=== PATIENT | female | born 1980 | race American Indian/Alaskan Native ===

== ENCOUNTER 2019-01-31 06:38 | Emergency (ER) | payer MEDICAID, SELFPAY ==
[2019-01-31 07:30] LABS: Basophils % (Auto) 0.4 % (0.0-1.8); Eosinophils % (Auto) 0.6 % (0.0-4.3); Hematocrit 35.6 % (30.3-42.9); Hemoglobin 11.8 gm/dl (10.1-14.3); Lymphocytes # (Auto) 1.6 K/mm3 (1.2-5.4); Mean Corpuscular HGB Conc 33 % (30-34); Mean Corpuscular Volume 75 fl (79-97); Monocytes # (Auto) 0.6 K/mm3 (0.0-0.8); Monocytes % (Auto) 7.7 % (0.0-7.3); Platelet Count 219 K/mm3 (140-440); Red Blood Count 4.77 M/mm3 (3.65-5.03)
[2019-01-31 07:42] LABS: BUN/Creatinine Ratio 11; Blood Urea Nitrogen 8 mg/dL (7-17); Calcium 8.8 mg/dL (8.4-10.2); Hemolysis Index 4
--- NOTE | 2019-01-31 08:28 | Emergency Department Report ---
ED General Adult HPI - General Chief complaint: Psych Stated complaint: MH EVAL/HEARING VOICES Time Seen by Provider: 01/31/19 08:01 Source: patient, EMS Mode of arrival: Ambulatory Limitations: No Limitations - History of Present Illness Initial comments: Patient presents to emergency prompt a chief complaint of auditory hallucinations. Patient states the voices told her to jump off a bridge. Patient denies previous history of auditory hallucinations. Patient does endorse having a history of bipolar but is currently not on any medications for bipolar. Patient also denies any recent prescription medication or [id number] medication use -: Gradual Severity scale (0 -10): 0 Consistency: constant Improves with: none Worsens with: none Associated Symptoms: denies other symptoms Treatments Prior to Arrival: NSAID - Related Data Home Medications Medication Instructions Recorded Confirmed Last Taken Unobtainable 01/31/19 01/31/19 Unknown Allergies Allergy/AdvReac Type Severity Reaction Status Date / Time haloperidol [From Haldol] Allergy Swelling Verified 01/31/19 07:10 ED Review of Systems ROS: Stated complaint: MH EVAL/HEARING VOICES Other details as noted in HPI Comment: All other systems reviewed and negative Constitutional: denies: chills, fever Eyes: denies: eye pain, eye discharge, vision change ENT: denies: ear pain, throat pain Respiratory: denies: cough, shortness of breath, wheezing Cardiovascular: denies: chest pain, palpitations Endocrine: no symptoms reported Gastrointestinal: denies: abdominal pain, nausea, diarrhea Genitourinary: denies: urgency, dysuria, discharge Musculoskeletal: denies: back pain, joint swelling, arthralgia Skin: denies: rash, lesions Neurological: denies: headache, weakness, paresthesias Psychiatric: auditory hallucinations, suicidal thoughts. denies: anxiety, depression Hematological/Lymphatic: denies: easy bleeding, easy bruising ED Past Medical Hx - Past Medical History Previous Medical History?: Yes Hx Psychiatric Treatment: Yes (depression, bipolar) Hx Asthma: Yes - Surgical History Past Surgical History?: No - Social History Smoking Status: Current Every Day Smoker - Medications Home Medications: Home Medications Medication Instructions Recorded Confirmed Last Taken Type Unobtainable 01/31/19 01/31/19 Unknown History ED Physical Exam - General Limitations: No Limitations General appearance: alert, in no apparent distress - Head Head exam: Present: atraumatic, normocephalic - Eye Eye exam: Present: normal appearance, PERRL, EOMI - ENT ENT exam: Present: mucous membranes moist - Neck Neck exam: Present: normal inspection - Respiratory Respiratory exam: Present: normal lung sounds bilaterally. Absent: respiratory distress - Cardiovascular Cardiovascular Exam: Present: regular rate, normal rhythm. Absent: systolic murmur, diastolic murmur, rubs, gallop - GI/Abdominal GI/Abdominal exam: Present: soft, normal bowel sounds. Absent: distended, tenderness - Extremities Exam Extremities exam: Present: normal inspection - Back Exam Back exam: Present: normal inspection - Neurological Exam Neurological exam: Present: alert, oriented X3, CN II-XII intact. Absent: motor sensory deficit - Psychiatric Psychiatric exam: Present: normal affect, normal mood, suicidal ideation - Skin Skin exam: Present: warm, dry, intact, normal color. Absent: rash ED Course Vital Signs 01/31/19 01/31/19 06:59 13:11 Temperature 98.7 F 98.9 F Pulse Rate 73 62 Respiratory 20 Rate Blood Pressure 115/83 Blood Pressure 123/81 [Right] O2 Sat by Pulse 99 Oximetry ED Medical Decision Making - Lab Data Result diagrams: 01/31/19 07:15 01/31/19 07:15 Lab Results 01/31/19 01/31/19 01/31/19 Range/Units 07:10 07:10 07:15 WBC (4.5-11.0) K/mm3 RBC (3.65-5.03) M/mm3 Hgb (10.1-14.3) gm/dl Hct (30.3-42.9) % MCV (79-97) fl MCH (28-32) pg MCHC (30-34) % RDW (13.2-15.2) % Plt Count (140-440) K/mm3 Lymph % (Auto) (13.4-35.0) % [place] % (Auto) (0.0-7.3) % Eos % (Auto) (0.0-4.3) % Baso % (Auto) (0.0-1.8) % Lymph # (1.2-5.4) K/mm3 [place] # (0.0-0.8) K/mm3 Eos # (0.0-0.4) K/mm3 Baso # (0.0-0.1) K/mm3 Seg Neutrophils % (40.0-70.0) % Seg Neutrophils # (1.8-7.7) K/mm3 Sodium (137-145) mmol/L Potassium (3.6-5.0) mmol/L Chloride (98-107) mmol/L Carbon Dioxide (22-30) mmol/L Anion Gap mmol/L BUN (7-17) mg/dL Creatinine (0.7-1.2) mg/dL Estimated GFR ml/min BUN/Creatinine Ratio % Glucose (65-100) mg/dL Calcium (8.4-10.2) mg/dL HCG, Qual (Negative) Urine Color Yellow (Yellow) Urine Turbidity Cloudy (Clear) Urine pH 8.0 H (5.0-7.0) Ur Specific [place] 1.025 (1.003-1.030) Urine Protein <15 mg/dl (Negative) mg/dL Urine Glucose (UA) Neg (Negative) mg/dL Urine Ketones Neg (Negative) mg/dL Urine Blood Neg (Negative) Urine Nitrite Neg (Negative) Urine Bilirubin Neg (Negative) Urine Urobilinogen < 2.0 (<2.0) mg/dL Ur Leukocyte Esterase Neg (Negative) Urine WBC (Auto) 1.0 (0.0-6.0) /HPF Urine RBC (Auto) 1.0 (0.0-6.0) /HPF U Epithel Cells (Auto) 11.0 (0-13.0) /HPF Urine Bacteria (Auto) 1+ (Negative) /HPF Urine Mucus 1+ /HPF Salicylates < 0.3 L (2.8-20.0) mg/dL Urine Opiates Screen Presumptive negative Urine Methadone Screen Presumptive negative Acetaminophen (10.0-30.0) ug/mL Ur Barbiturates Screen Presumptive negative Ur Phencyclidine Scrn Presumptive negative Ur Amphetamines Screen Presumptive negative U Benzodiazepines Scrn Presumptive negative Urine Cocaine Screen Presumptive negative U Marijuana (THC) Screen Presumptive negative Drugs of Abuse Note Disclamer Plasma/Serum Alcohol (0-0.07) % 01/31/19 01/31/19 01/31/19 Range/Units 07:15 07:15 07:15 WBC (4.5-11.0) K/mm3 RBC (3.65-5.03) M/mm3 Hgb (10.1-14.3) gm/dl Hct (30.3-42.9) % MCV (79-97) fl MCH (28-32) pg MCHC (30-34) % RDW (13.2-15.2) % Plt Count (140-440) K/mm3 Lymph % (Auto) (13.4-35.0) % [place] % (Auto) (0.0-7.3) % Eos % (Auto) (0.0-4.3) % Baso % (Auto) (0.0-1.8) % Lymph # (1.2-5.4) K/mm3 [place] # (0.0-0.8) K/mm3 Eos # (0.0-0.4) K/mm3 Baso # (0.0-0.1) K/mm3 Seg Neutrophils % (40.0-70.0) % Seg Neutrophils # (1.8-7.7) K/mm3 Sodium 138 (137-145) mmol/L Potassium 4.3 (3.6-5.0) mmol/L Chloride 102.5 (98-107) mmol/L Carbon Dioxide 25 (22-30) mmol/L Anion Gap 15 mmol/L BUN 8 (7-17) mg/dL Creatinine 0.7 (0.7-1.2) mg/dL Estimated GFR > 60 ml/min BUN/Creatinine Ratio 11 % Glucose 126 H (65-100) mg/dL Calcium 8.8 (8.4-10.2) mg/dL HCG, Qual (Negative) Urine Color (Yellow) Urine Turbidity (Clear) Urine pH (5.0-7.0) Ur Specific [place] (1.003-1.030) Urine Protein (Negative) mg/dL Urine Glucose (UA) (Negative) mg/dL Urine Ketones (Negative) mg/dL Urine Blood (Negative) Urine Nitrite (Negative) Urine Bilirubin (Negative) Urine Urobilinogen (<2.0) mg/dL Ur Leukocyte Esterase (Negative) Urine WBC (Auto) (0.0-6.0) /HPF Urine RBC (Auto) (0.0-6.0) /HPF U Epithel Cells (Auto) (0-13.0) /HPF Urine Bacteria (Auto) (Negative) /HPF Urine Mucus /HPF Salicylates (2.8-20.0) mg/dL Urine Opiates Screen Urine Methadone Screen Acetaminophen < 5.0 L (10.0-30.0) ug/mL Ur Barbiturates Screen Ur Phencyclidine Scrn Ur Amphetamines Screen U Benzodiazepines Scrn Urine Cocaine Screen U Marijuana (THC) Screen Drugs of Abuse Note Plasma/Serum Alcohol < 0.01 (0-0.07) % 01/31/19 01/31/19 Range/Units 07:15 07:15 WBC 7.5 (4.5-11.0) K/mm3 RBC 4.77 (3.65-5.03) M/mm3 Hgb 11.8 (10.1-14.3) gm/dl Hct 35.6 (30.3-42.9) % MCV 75 L (79-97) fl MCH 25 L (28-32) pg MCHC 33 (30-34) % RDW 17.0 H (13.2-15.2) % Plt Count 219 (140-440) K/mm3 Lymph % (Auto) 22.0 (13.4-35.0) % [place] % (Auto) 7.7 H (0.0-7.3) % Eos % (Auto) 0.6 (0.0-4.3) % Baso % (Auto) 0.4 (0.0-1.8) % Lymph # 1.6 (1.2-5.4) K/mm3 [place] # 0.6 (0.0-0.8) K/mm3 Eos # 0.0 (0.0-0.4) K/mm3 Baso # 0.0 (0.0-0.1) K/mm3 Seg Neutrophils % 69.3 (40.0-70.0) % Seg Neutrophils # 5.2 (1.8-7.7) K/mm3 Sodium (137-145) mmol/L Potassium (3.6-5.0) mmol/L Chloride (98-107) mmol/L Carbon Dioxide (22-30) mmol/L Anion Gap mmol/L BUN (7-17) mg/dL Creatinine (0.7-1.2) mg/dL Estimated GFR ml/min BUN/Creatinine Ratio % Glucose (65-100) mg/dL Calcium (8.4-10.2) mg/dL HCG, Qual Negative (Negative) Urine Color (Yellow) Urine Turbidity (Clear) Urine pH (5.0-7.0) Ur Specific [place] (1.003-1.030) Urine Protein (Negative) mg/dL Urine Glucose (UA) (Negative) mg/dL Urine Ketones (Negative) mg/dL Urine Blood (Negative) Urine Nitrite (Negative) Urine Bilirubin (Negative) Urine Urobilinogen (<2.0) mg/dL Ur Leukocyte Esterase (Negative) Urine WBC (Auto) (0.0-6.0) /HPF Urine RBC (Auto) (0.0-6.0) /HPF U Epithel Cells (Auto) (0-13.0) /HPF Urine Bacteria (Auto) (Negative) /HPF Urine Mucus /HPF Salicylates (2.8-20.0) mg/dL Urine Opiates Screen Urine Methadone Screen Acetaminophen (10.0-30.0) ug/mL Ur Barbiturates Screen Ur Phencyclidine Scrn Ur Amphetamines Screen U Benzodiazepines Scrn Urine Cocaine Screen U Marijuana (THC) Screen Drugs of Abuse Note Plasma/Serum Alcohol (0-0.07) % - Medical Decision Making Awaiting psychiatric placement Critical care attestation.: If time is entered above; I have spent that time in minutes in the direct care of this critically ill patient, excluding procedure time. ED Disposition Clinical Impression: Suicidal ideations Disposition: DC/TX-65 PSY HOSP/PSY UNIT Is pt being admited?: No Does the pt Need Aspirin: No Condition: Stable Referrals: STONE HERNANDEZ MD [Primary Care Provider] - 3-5 Days
[2019-01-31 08:54] LABS: Amphetamine Screen,Urine PRESUMPTIVE NEGATIVE; Benzodiazepines Screen,Urine PRESUMPTIVE NEGATIVE; Bilirubin,Urine NEG (Negative); Blood,Urine NEG (Negative); Cannabinoid Screen,Urine PRESUMPTIVE NEGATIVE; Cocaine Screen,Urine PRESUMPTIVE NEGATIVE; Color,Urine Yellow (Yellow); Methadone Screen,Urine PRESUMPTIVE NEGATIVE; Mucus,Urine 1+ /HPF; Opiate Screen,Urine PRESUMPTIVE NEGATIVE; Protein,Urine <15 mg/dL mg/dL (Negative); Urobilinogen,Urine < 2.0 mg/dL (<2.0)
[2019-01-31 09:27] LABS: Bacteria,Urine 1+ /HPF (Negative)
[2019-01-31 13:16] VITALS: BP 123/81
== END 2019-01-31 15:36 ==
LOC: EEVIPCON 06:38 → ED 06:38
DX: F31.9 Bipolar disorder, unspecified (principal); R45.851 Suicidal ideations; R44.0 Auditory hallucinations; J45.909 Unspecified asthma, uncomplicated; F17.200 Nicotine dependence, unspecified, uncomplicated
CPT/HCPCS: 36415; 80048; 80307; 81001; 84703; 85025; 99285; G0480; 80320

== ENCOUNTER 2019-02-13 05:40 | Emergency (ER) | payer MEDICAID, SELFPAY ==
--- NOTE | 2019-02-13 06:25 | XRay Report ---
PROCEDURE: XR CHEST 1V AP TECHNIQUE: A single view of the chest was obtained. HISTORY: Chest Pain COMPARISONS: None available FINDINGS: The lungs are clear. The heart size is normal. The lungs are not congested. Pleural fluid is not seen . The bones and soft tissues are well-maintained. IMPRESSION: Within normal limits.. This document is electronically signed by Dev Briscoe MD., February 13 2019 06:23:29 AM ET
[2019-02-13 06:33] LABS: Basophils % (Auto) 0.6 % (0.0-1.8); Eosinophils # (Auto) 0.1 K/mm3 (0.0-0.4); Eosinophils % (Auto) 1.1 % (0.0-4.3); Hematocrit 34.9 % (30.3-42.9); Hemoglobin 11.6 gm/dl (10.1-14.3); Lymphocytes % (Auto) 28.5 % (13.4-35.0); Mean Corpuscular HGB Conc 33 % (30-34); Mean Corpuscular Volume 75 fl (79-97); Monocytes # (Auto) 0.5 K/mm3 (0.0-0.8); Monocytes % (Auto) 7.9 % (0.0-7.3); Platelet Count 270 K/mm3 (140-440); Red Blood Count 4.62 M/mm3 (3.65-5.03)
[2019-02-13 06:49] LABS: Bilirubin,Urine NEG (Negative); Blood,Urine LG (Negative); Color,Urine Red (Yellow); Mucus,Urine FEW /HPF; Urobilinogen,Urine < 2.0 mg/dL (<2.0)
[2019-02-13 06:50] LABS: RBC,Urine > 182.0 /HPF (0.0-6.0)
[2019-02-13 07:05] LABS: BUN/Creatinine Ratio 12; Blood Urea Nitrogen 11 mg/dL (7-17); Calcium 8.9 mg/dL (8.4-10.2); Hemolysis Index 0
--- NOTE | 2019-02-13 08:29 | Emergency Department Report ---
ED Abdominal Pain HPI - General Chief Complaint: Chest Pain Stated Complaint: CHEST ABD PAIN NAUSEA VAG PAIN Time Seen by Provider: 02/13/19 08:02 Source: patient Mode of arrival: Ambulatory Limitations: No Limitations - History of Present Illness Initial Comments: Patient comes to the emergency room this morning complaining of abdominal pain, chest pain and vaginal pain. She was screened using protocol early this morning. Patient was placed in a room and underwent a workup. All of her findings were noted and normal. Patient was constricted on initial exam not very forthcoming and just complaining of psychosomatic complaints. However, on discharge patient started crying and stating that something is wrong with her "'head" -: Sudden Location: diffuse Severity scale (0 -10): 7 Consistency: constant Improves With: nothing Worsens With: nothing Associated Symptoms: nausea, vomiting, other (no n/v in ER) - Related Data Home Medications Medication Instructions Recorded Confirmed Last Taken Unobtainable 01/31/19 01/31/19 Unknown Allergies Allergy/AdvReac Type Severity Reaction Status Date / Time haloperidol [From Haldol] Allergy Swelling Verified 01/31/19 07:10 ED Review of Systems ROS: Stated complaint: CHEST ABD PAIN NAUSEA VAG PAIN Other details as noted in HPI Comment: All other systems reviewed and negative ENT: denies: ear pain Respiratory: denies: cough Cardiovascular: denies: palpitations Gastrointestinal: as per HPI, abdominal pain, nausea, vomiting Genitourinary: as per HPI Musculoskeletal: denies: back pain Skin: denies: rash Neurological: as per HPI. denies: headache Psychiatric: denies: anxiety Hematological/Lymphatic: denies: easy bleeding ED Past Medical Hx - Past Medical History Hx Psychiatric Treatment: Yes (depression, bipolar) Hx Asthma: Yes Additional medical history: Epilepsy - Surgical History Past Surgical History?: Yes Additional Surgical History: C/SX2, left ankle S/P - Family History Family history: no significant - Social History Smoking Status: Former Smoker Substance Use Type: None - Medications Home Medications: Home Medications Medication Instructions Recorded Confirmed Last Taken Type Unobtainable 01/31/19 01/31/19 Unknown History ED Physical Exam - General Limitations: No Limitations General appearance: alert - Head Head exam: Present: atraumatic - Eye Eye exam: Present: normal appearance - ENT ENT exam: Present: mucous membranes moist - Neck Neck exam: Present: normal inspection - Respiratory Respiratory exam: Present: normal lung sounds bilaterally - Cardiovascular Cardiovascular Exam: Present: regular rate - GI/Abdominal GI/Abdominal exam: Present: soft, normal bowel sounds - Extremities Exam Extremities exam: Present: normal inspection - Back Exam Back exam: Present: normal inspection, full ROM - Neurological Exam Neurological exam: Present: alert, oriented X3 - Psychiatric Psychiatric exam: Present: normal affect, normal mood - Skin Skin exam: Present: warm, dry ED Course Vital Signs 02/13/19 02/13/19 05:51 05:57 Temperature 98.0 F 98 F Pulse Rate 66 68 Respiratory 18 18 Rate Blood Pressure 112/78 112/78 O2 Sat by Pulse 96 96 Oximetry ED Medical Decision Making - Lab Data Result diagrams: 02/13/19 06:17 02/13/19 06:17 - EKG Data EKG shows normal: sinus rhythm Rate: normal - EKG Data When compared to previous EKG there are: no significant change Interpretation: no acute changes - Radiology Data Radiology results: report reviewed, image reviewed - Medical Decision Making Labs 02/13/19 02/13/19 02/13/19 06:17 06:17 06:21 WBC 6.9 RBC 4.62 Hgb 11.6 Hct 34.9 MCV 75 L MCH 25 L MCHC 33 RDW 17.0 H Plt Count 270 Lymph % (Auto) 28.5 [place] % (Auto) 7.9 H Eos % (Auto) 1.1 Baso % (Auto) 0.6 Lymph # 2.0 [place] # 0.5 Eos # 0.1 Baso # 0.0 Seg Neutrophils % 61.9 Seg Neutrophils # 4.3 Sodium 145 Potassium 4.6 Chloride 104.9 Carbon Dioxide 27 Anion Gap 18 BUN 11 Creatinine 0.9 Estimated GFR > 60 BUN/Creatinine Ratio 12 Glucose 121 H Calcium 8.9 Troponin T < 0.010 HCG, Qual Urine Color Red Urine Turbidity Cloudy Urine pH 6.0 Ur Specific [place] 1.032 H Urine Protein 100 mg/dl Urine Glucose (UA) Neg Urine Ketones Neg Urine Blood Lg Urine Nitrite Neg Urine Bilirubin Neg Urine Urobilinogen < 2.0 Ur Leukocyte Esterase Sm Urine WBC (Auto) 28.0 H Urine RBC (Auto) > 182.0 U Epithel Cells (Auto) 2.0 Urine Mucus Few 02/13/19 02/13/19 08:51 10:14 WBC RBC Hgb Hct MCV MCH MCHC RDW Plt Count Lymph % (Auto) [place] % (Auto) Eos % (Auto) Baso % (Auto) Lymph # [place] # Eos # Baso # Seg Neutrophils % Seg Neutrophils # Sodium Potassium Chloride Carbon Dioxide Anion Gap BUN Creatinine Estimated GFR BUN/Creatinine Ratio Glucose Calcium Troponin T < 0.010 HCG, Qual Negative Urine Color Urine Turbidity Urine pH Ur Specific [place] Urine Protein Urine Glucose (UA) Urine Ketones Urine Blood Urine Nitrite Urine Bilirubin Urine Urobilinogen Ur Leukocyte Esterase Urine WBC (Auto) Urine RBC (Auto) U Epithel Cells (Auto) Urine Mucus Vital Signs 02/13/19 02/13/19 05:51 05:57 Temperature 98.0 F 98 F Pulse Rate 66 68 Respiratory 18 18 Rate Blood Pressure 112/78 112/78 O2 Sat by Pulse 96 96 Oximetry on dc for her physical complaints the pt started crying and screaming that something is wrong with her head and brain. she kept stating I am not crazy. she would not share info and was hysterical. she had not done any of this prior to discharge. no si no hi I asked her if she wanted mental health to see her and she said yes. [id number] MHE completed-see their noted Move to main ED for replacement. Critical care attestation.: If time is entered above; I have spent that time in minutes in the direct care of this critically ill patient, excluding procedure time. ED Disposition Clinical Impression: Non-cardiac chest pain, Anxiety, Post depression Disposition: DC/TX-65 PSY HOSP/PSY UNIT Is pt being admited?: No Does the pt Need Aspirin: No Condition: Stable Additional Instructions: DIET TOLERATED MEDS ORDERED FOLLOW UP PCP ACTIVITY TOLERATED MOTRIN OR TYLENOL FOR PAIN OR FEVER Time of Disposition: 12:43
[2019-02-13] MEDS ORDERED: ZOFRAN ODT PO ONE (10:20)
[2019-02-13] MEDS ORDERED: IBUPROFEN PO ONE (11:02)
[2019-02-13] MEDS ORDERED: IBUPROFEN ONE (11:04)
[2019-02-13 16:44] LABS: Amphetamine Screen,Urine PRESUMPTIVE NEGATIVE; Benzodiazepines Screen,Urine PRESUMPTIVE NEGATIVE; Cannabinoid Screen,Urine PRESUMPTIVE NEGATIVE; Cocaine Screen,Urine PRESUMPTIVE NEGATIVE; Methadone Screen,Urine PRESUMPTIVE NEGATIVE; Opiate Screen,Urine PRESUMPTIVE NEGATIVE
[2019-02-13 16:50] LABS: HCG Qualitative,Urine Negative (Negative)
[2019-02-13] MEDS ORDERED: GEODON IM PRN (21:43)
[2019-02-13] MEDS ORDERED: ATIVAN IM PRN (21:43)
--- NOTE | 2019-02-13 21:53 | Emergency Department Report ---
ED General Adult HPI - General Chief complaint: Chest Pain Stated complaint: CHEST ABD PAIN NAUSEA VAG PAIN Time Seen by Provider: 02/13/19 08:02 Source: patient, RN notes reviewed, old records reviewed Mode of arrival: Ambulatory Limitations: No Limitations - History of Present Illness Initial comments: This is a 38-year-old female. The patient was recently seen in this department for multiple nonspecific symptoms. The patient was discharged, and after discharge, became irate, combative, and belligerent, cursed out ER staff, and threatened to kill herself. The patient recently had an extensive workup by one my colleagues. When I go to evaluate the patient, the patient reports that she has no physical pain. She reports that she feels like her "brain is broken", and she is depressed and suicidal because her child was taken into government custody, [facility], and she states that "I need to get my brain better so I can see my child." The patient denies headache, neck pain, chest pain, abdominal pain, shortness of breath. She reports suicidality and depression. She reports being admitted to a psychiatric hospital, in [place], but does not recall a specific psychiatric diagnosis. She believes that she will run into traffic. She reports her symptoms are constant. They do not radiate anywhere. They're painless. She reports that they do not have exacerbating or relieving factors. -: Gradual Severity scale (0 -10): 0 Consistency: constant Improves with: none Worsens with: none - Related Data Home Medications Medication Instructions Recorded Confirmed Last Taken Unobtainable 01/31/19 01/31/19 Unknown Allergies Allergy/AdvReac Type Severity Reaction Status Date / Time haloperidol [From Haldol] Allergy Swelling Verified 01/31/19 07:10 ED Review of Systems ROS: Stated complaint: CHEST ABD PAIN NAUSEA VAG PAIN Other details as noted in HPI Constitutional: denies: fever ENT: denies: epistaxis Respiratory: denies: cough Cardiovascular: denies: chest pain Gastrointestinal: as per HPI. denies: abdominal pain, nausea, vomiting Genitourinary: denies: dysuria Musculoskeletal: denies: back pain Skin: denies: rash Neurological: as per HPI. denies: headache Psychiatric: anxiety, depression, suicidal thoughts Hematological/Lymphatic: denies: easy bleeding ED Past Medical Hx - Past Medical History Hx Psychiatric Treatment: Yes (depression, bipolar) Hx Asthma: Yes Additional medical history: Epilepsy - Surgical History Past Surgical History?: Yes Additional Surgical History: C/SX2, left ankle S/P - Social History Smoking Status: Former Smoker Substance Use Type: None - Medications Home Medications: Home Medications Medication Instructions Recorded Confirmed Last Taken Type Unobtainable 01/31/19 01/31/19 Unknown History ED Physical Exam - General Limitations: No Limitations General appearance: alert, anxious, in distress, obese - Head Head exam: Present: atraumatic, normocephalic - Eye Eye exam: Present: normal appearance, PERRL, EOMI (visual acuity intact to finger counting, color perception, reading at a close distance). Absent: nystagmus - ENT ENT exam: Present: normal exam, normal orophraynx, mucous membranes moist, normal external ear exam - Neck Neck exam: Present: normal inspection, full ROM. Absent: tenderness, meningismus - Respiratory Respiratory exam: Present: normal lung sounds bilaterally. Absent: respiratory distress - Cardiovascular Cardiovascular Exam: Present: regular rate, normal rhythm, normal heart sounds. Absent: bradycardia, tachycardia, irregular rhythm, systolic murmur, diastolic murmur, rubs, gallop - GI/Abdominal GI/Abdominal exam: Present: soft. Absent: distended, tenderness, guarding, rebo und, rigid, pulsatile mass - Extremities Exam Extremities exam: Present: normal inspection, full ROM, other (2+ pulses noted in the bilateral upper, lower extremities. Compartments soft. No long bony tenderness. The pelvis is stable.). Absent: pedal edema, joint swelling, calf tenderness - Back Exam Back exam: Present: normal inspection, full ROM. Absent: tenderness, CVA tenderness (R), paraspinal tenderness, vertebral tenderness - Neurological Exam Neurological exam: Present: alert, oriented X3, CN II-XII intact, normal gait, other (Extraocular movements intact. Tongue midline. No facial droop. Facial sensation intact to light touch in the V1, V2, V3 distribution bilaterally. 5 and 5 strength in 4 extremities.. Sensation is intact to light touch in 4 extremities.). Absent: motor sensory deficit - Psychiatric Psychiatric exam: Present: depressed, agitated, anxious, suicidal ideation - Skin Skin exam: Present: warm, dry, intact, normal color. Absent: rash ED Course Vital Signs 02/13/19 02/13/19 02/13/19 05:51 05:57 19:10 Temperature 98.0 F 98 F 97.9 F Pulse Rate 66 68 62 Respiratory 18 18 13 Rate Blood Pressure 112/78 112/78 Blood Pressure 109/66 [Left] O2 Sat by Pulse 96 96 96 Oximetry ED Medical Decision Making - Lab Data Result diagrams: 02/13/19 06:17 02/13/19 06:17 Vital Signs 02/13/19 02/13/19 02/13/19 05:51 05:57 19:10 Temperature 98.0 F 98 F 97.9 F Pulse Rate 66 68 62 Respiratory 18 18 13 Rate Blood Pressure 112/78 112/78 Blood Pressure 109/66 [Left] O2 Sat by Pulse 96 96 96 Oximetry Lab Results 02/13/19 02/13/19 02/13/19 Range/Units 06:17 06:17 06:21 WBC 6.9 (4.5-11.0) K/mm3 RBC 4.62 (3.65-5.03) M/mm3 Hgb 11.6 (10.1-14.3) gm/dl Hct 34.9 (30.3-42.9) % MCV 75 L (79-97) fl MCH 25 L (28-32) pg MCHC 33 (30-34) % RDW 17.0 H (13.2-15.2) % Plt Count 270 (140-440) K/mm3 Lymph % (Auto) 28.5 (13.4-35.0) % [place] % (Auto) 7.9 H (0.0-7.3) % Eos % (Auto) 1.1 (0.0-4.3) % Baso % (Auto) 0.6 (0.0-1.8) % Lymph # 2.0 (1.2-5.4) K/mm3 [place] # 0.5 (0.0-0.8) K/mm3 Eos # 0.1 (0.0-0.4) K/mm3 Baso # 0.0 (0.0-0.1) K/mm3 Seg Neutrophils % 61.9 (40.0-70.0) % Seg Neutrophils # 4.3 (1.8-7.7) K/mm3 Sodium 145 (137-145) mmol/L Potassium 4.6 (3.6-5.0) mmol/L Chloride 104.9 (98-107) mmol/L Carbon Dioxide 27 (22-30) mmol/L Anion Gap 18 mmol/L BUN 11 (7-17) mg/dL Creatinine 0.9 (0.7-1.2) mg/dL Estimated GFR > 60 ml/min BUN/Creatinine Ratio 12 % Glucose 121 H (65-100) mg/dL Calcium 8.9 (8.4-10.2) mg/dL Troponin T < 0.010 (0.00-0.029) ng/mL TSH (0.270-4.200) mlU/mL HCG, Qual (Negative) Urine Color Red (Yellow) Urine Turbidity Cloudy (Clear) Urine pH 6.0 (5.0-7.0) Ur Specific [place] 1.032 H (1.003-1.030) Urine Protein 100 mg/dl (Negative) mg/dL Urine Glucose (UA) Neg (Negative) mg/dL Urine Ketones Neg (Negative) mg/dL Urine Blood Lg (Negative) Urine Nitrite Neg (Negative) Urine Bilirubin Neg (Negative) Urine Urobilinogen < 2.0 (<2.0) mg/dL Ur Leukocyte Esterase Sm (Negative) Urine WBC (Auto) 28.0 H (0.0-6.0) /HPF Urine RBC (Auto) > 182.0 (0.0-6.0) /HPF U Epithel Cells (Auto) 2.0 (0-13.0) /HPF Urine Mucus Few /HPF Urine HCG, Qual (Negative) Urine Opiates Screen Urine Methadone Screen Ur Barbiturates Screen Ur Phencyclidine Scrn Ur Amphetamines Screen U Benzodiazepines Scrn Urine Cocaine Screen U Marijuana (THC) Screen Drugs of Abuse Note 02/13/19 02/13/19 02/13/19 Range/Units 08:51 10:14 10:14 WBC (4.5-11.0) K/mm3 RBC (3.65-5.03) M/mm3 Hgb (10.1-14.3) gm/dl Hct (30.3-42.9) % MCV (79-97) fl MCH (28-32) pg MCHC (30-34) % RDW (13.2-15.2) % Plt Count (140-440) K/mm3 Lymph % (Auto) (13.4-35.0) % [place] % (Auto) (0.0-7.3) % Eos % (Auto) (0.0-4.3) % Baso % (Auto) (0.0-1.8) % Lymph # (1.2-5.4) K/mm3 [place] # (0.0-0.8) K/mm3 Eos # (0.0-0.4) K/mm3 Baso # (0.0-0.1) K/mm3 Seg Neutrophils % (40.0-70.0) % Seg Neutrophils # (1.8-7.7) K/mm3 Sodium (137-145) mmol/L Potassium (3.6-5.0) mmol/L Chloride (98-107) mmol/L Carbon Dioxide (22-30) mmol/L Anion Gap mmol/L BUN (7-17) mg/dL Creatinine (0.7-1.2) mg/dL Estimated GFR ml/min BUN/Creatinine Ratio % Glucose (65-100) mg/dL Calcium (8.4-10.2) mg/dL Troponin T < 0.010 (0.00-0.029) ng/mL TSH 1.540 (0.270-4.200) mlU/mL HCG, Qual Negative (Negative) Urine Color (Yellow) Urine Turbidity (Clear) Urine pH (5.0-7.0) Ur Specific [place] (1.003-1.030) Urine Protein (Negative) mg/dL Urine Glucose (UA) (Negative) mg/dL Urine Ketones (Negative) mg/dL Urine Blood (Negative) Urine Nitrite (Negative) Urine Bilirubin (Negative) Urine Urobilinogen (<2.0) mg/dL Ur Leukocyte Esterase (Negative) Urine WBC (Auto) (0.0-6.0) /HPF Urine RBC (Auto) (0.0-6.0) /HPF U Epithel Cells (Auto) (0-13.0) /HPF Urine Mucus /HPF Urine HCG, Qual (Negative) Urine Opiates Screen Urine Methadone Screen Ur Barbiturates Screen Ur Phencyclidine Scrn Ur Amphetamines Screen U Benzodiazepines Scrn Urine Cocaine Screen U Marijuana (THC) Screen Drugs of Abuse Note 02/13/19 02/13/19 Range/Units 15:34 15:35 WBC (4.5-11.0) K/mm3 RBC (3.65-5.03) M/mm3 Hgb (10.1-14.3) gm/dl Hct (30.3-42.9) % MCV (79-97) fl MCH (28-32) pg MCHC (30-34) % RDW (13.2-15.2) % Plt Count (140-440) K/mm3 Lymph % (Auto) (13.4-35.0) % [place] % (Auto) (0.0-7.3) % Eos % (Auto) (0.0-4.3) % Baso % (Auto) (0.0-1.8) % Lymph # (1.2-5.4) K/mm3 [place] # (0.0-0.8) K/mm3 Eos # (0.0-0.4) K/mm3 Baso # (0.0-0.1) K/mm3 Seg Neutrophils % (40.0-70.0) % Seg Neutrophils # (1.8-7.7) K/mm3 Sodium (137-145) mmol/L Potassium (3.6-5.0) mmol/L Chloride (98-107) mmol/L Carbon Dioxide (22-30) mmol/L Anion Gap mmol/L BUN (7-17) mg/dL Creatinine (0.7-1.2) mg/dL Estimated GFR ml/min BUN/Creatinine Ratio % Glucose (65-100) mg/dL Calcium (8.4-10.2) mg/dL Troponin T (0.00-0.029) ng/mL TSH (0.270-4.200) mlU/mL HCG, Qual (Negative) Urine Color (Yellow) Urine Turbidity (Clear) Urine pH (5.0-7.0) Ur Specific [place] (1.003-1.030) Urine Protein (Negative) mg/dL Urine Glucose (UA) (Negative) mg/dL Urine Ketones (Negative) mg/dL Urine Blood (Negative) Urine Nitrite (Negative) Urine Bilirubin (Negative) Urine Urobilinogen (<2.0) mg/dL Ur Leukocyte Esterase (Negative) Urine WBC (Auto) (0.0-6.0) /HPF Urine RBC (Auto) (0.0-6.0) /HPF U Epithel Cells (Auto) (0-13.0) /HPF Urine Mucus /HPF Urine HCG, Qual Negative (Negative) Urine Opiates Screen Presumptive negative Urine Methadone Screen Presumptive negative Ur Barbiturates Screen Presumptive negative Ur Phencyclidine Scrn Presumptive negative Ur Amphetamines Screen Presumptive negative U Benzodiazepines Scrn Presumptive negative Urine Cocaine Screen Presumptive negative U Marijuana (THC) Screen Presumptive negative Drugs of Abuse Note Disclamer - EKG Data -: EKG Interpreted by Tn EKG shows normal: sinus rhythm Rate: normal - EKG Data 02/14/19 00:32 eKG shows a sinus bradycardia, normal axis, normal intervals, poor R-wave progression, low voltage, not having chest pain, this EKG is not consistent with an ST elevation myocardial infarction. - Radiology Data Radiology results: report reviewed, image reviewed Print Report Referring Physician: SHARMAINE POLLARD Patient Name: PATRICIA MENDEZ Date of : 1980 Sex: Female Report Date: 2019-02-13 Report Status: [place] [address] Cat Scan Report Signed Patient: PATRICIA MENDEZ MR#: [id number] 32 : 1980 Acct:[id number] Age/Sex: 38 / F ADM Date: 02/13/19 Loc: ED Attending Dr: Ordering Physician: SHARMAINE POLLARD MD Date of Service: 02/13/19 Procedure(s): CT head/brain wo con Accession Number(s): [id number] cc: SHARMAINE POLLARD MD PROCEDURE: CT HEAD/BRAIN WO CON TECHNIQUE: Axial helical imaging from the skull base to the vertex. HISTORY: psychosis COMPARISONS: None FINDINGS: There is no evidence of an acute intracranial process, intracranial hemorrhage or mass effect. The ventricles are normal size. There is atherosclerotic vascular calcification of the internal carotid arteries bilaterally at the skull base. The visualized portions of the orbits, paranasal and mastoid sinuses are unremarkable. The bony structures are unremarkable. IMPRESSION: 1. No evidence of an acute intracranial process, intracranial hemorrhage or mass effect. 2. Atherosclerotic vascular calcification internal carotid arteries bilaterally at the skull base. If there is a clinical suspicion of an acute intracranial process and if further imaging is required, MRI brain may be helpful. This document is electronically signed by Doris Ma MD., February 13 2019 10:57:52 PM ET Transcribed By: ED Dictated By: DORIS MA MD Electronically Authenticated By: DORIS MA MD Signed Date/Time: 02/13/192258 DD/ 39 TD/TT: 02/13/192240 Print Report Referring Physician: NIELS HILARIO Patient Name: PATRICIA MENDEZ Date of : 1980 Sex: Female Report Date: 2019-02-13 Report Status: Finalized Findings [facility] [address] [place] [address] XRay Report Signed Patient: PATRICIA MENDEZ MR#: [id number] 32 : 1980 Acct:[id number] Age/Sex: 38 / F ADM Date: 02/13/19 Loc: ED Attending Dr: Ordering Physician: NIELS HILARIO MD Date of Service: 02/13/19 Procedure(s): XR chest 1V ap Accession Number(s): [id number] cc: NIELS HILARIO MD Fluoro Time In Minutes: PROCEDURE: XR CHEST 1V AP TECHNIQUE: A single view of the chest was obtained. H ISTORY: Chest Pain COMPARISONS: None available FINDINGS: The lungs are clear. The heart size is normal. The lungs are not congested. Pleural fluid is not seen. The bones and soft tissues are well-maintained. IMPRESSION: Within normal limits.. This document is electronically signed by Mu Briscoe MD., February 13 2019 06:23:29 AM ET Transcribed By: RB Dictated By: MU BRISCOE MD Electronically Authenticated By: MU BRISCOE MD Signed Date/Time: 02/13/1925 DD/ 7 TD/TT: 02/13/19618 - Medical Decision Making Differential diagnosis, including but not limited to: Psychosis, bipolar, mood disorder, medical clearance for psychiatric placement Assessment and plan: 38-year-old female with presumed chronic poorly managed psychiatric disease, with depression, suicidality, aggressive behavior, and plan to kill herself. Patient is placed on a 1013. Screening laboratory studies unremarkable. Objective testing unremarkable. Physical exam unremarkable. Explain significance of 1013 to patient. She verbalizes understanding. She reports that she made no complaint of homicidality or suicidality earlier on today, because she did not want to be held on an involuntary basis. Explain to patient 1013, and what it signifies. Explain that patient would thus far require involuntary hold, and she verbalized understanding. At this point in time, the patient does not appear to have an immediate medical contraindication to psychiatric admission, evaluation and consultation. The crisis team was informed. Critical care attestation.: If time is entered above; I have spent that time in minutes in the direct care of this critically ill patient, excluding procedure time. ED Disposition Clinical Impression: Medical clearance for psychiatric admission Disposition: DC/TX-65 PSY HOSP/PSY UNIT Is pt being admited?: No Does the pt Need Aspirin: No Condition: Good Additional Instructions: DIET TOLERATED MEDS ORDERED FOLLOW UP PCP ACTIVITY TOLERATED MOTRIN OR TYLENOL FOR PAIN OR FEVER Referrals: STONE HERNANDEZ MD [Primary Care Provider] - 3-5 Days
--- NOTE | 2019-02-13 22:59 | Cat Scan Report ---
PROCEDURE: CT HEAD/BRAIN WO CON TECHNIQUE: Axial helical imaging from the skull base to the vertex. HISTORY: psychosis COMPARISONS: None FINDINGS: There is no evidence of an acute intracranial process, intracranial hemorrhage or mass effect. The ventricles are normal size. There is atherosclerotic vascular calcification of the internal carotid arteries bilaterally at the s kull base. The visualized portions of the orbits, paranasal and mastoid sinuses are unremarkable. The bony structures are unremarkable. IMPRESSION: 1. No evidence of an acute intracranial process, intracranial hemorrhage or mass effect. 2. Atherosclerotic vascular calcification internal carotid arteries bilaterally at the skull base. If there is a clinical suspicion of an acute intracranial process and if further imaging is required, MRI brain may be helpful. This document is electronically signed by Doris Ma MD., February 13 2019 10:57:52 PM ET
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
[2019-02-14] MEDS: VISTARIL PO SCH (21:47)
[2019-02-14] MEDS: GEODON PO SCH (21:48)
[2019-02-15] MEDS: GEODON PO SCH (12:02)
[2019-02-15] MEDS: VISTARIL PO SCH (12:02)
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
--- NOTE | 2019-02-15 15:14 | Emergency Department Report ---
Blank Doc - Documentation Documentation: Patient is a 38-year-old female that presents emergency room urgently for suici apple ideations and depression. Patient denies chest pain. Patient denies shortness of breath. Patient denies suicidal ideations. Patient denies hallucinations. Patient denies homicidal ideations. Patient appears to be medically and psychologically stable. Patient seen by psychiatry and cleared. Psychiatry recommends rescinding the 1013. See psychiatry assessment and plan below. We'll discharge patient home. Assessment and Plan Impression: Bipolar DO per the patient. PTSD. Unspecified Anxiety DO. Today the patient is calm and cooperative during the assessment. The patient is no threat to self. DDx: R/O Depression Recommendation/Plan: Rescind 1013 and continue Geodon 20 mg PO BID for mood and Vistaril 25 mg PO BID for anxiety. Discussed possible metabolic side effects of Geodon with the patient. Take Geodon with food, patient verbalized understanding. Dispo: The patient can follow up with [facility] for outpatient psy services. Will staff with Dr. Dixie Knutson.
[2019-02-15 15:49] VITALS: BP 134/82
[2019-02-15] MEDS ORDERED: VISTARIL PO SCH (22:00)
== END 2019-02-15 15:50 | disposition home or self-care (01) ==
LOC: ED 05:40
DX: F41.9 Anxiety disorder, unspecified (principal); F53.0 Postpartum depression; R10.2 Pelvic and perineal pain; R10.84 Generalized abdominal pain; F31.9 Bipolar disorder, unspecified; G40.909 Epilepsy, unspecified, not intractable, without status epilepticus; Z87.891 Personal history of nicotine dependence; Z88.8 Allergy status to other drugs, medicaments and biological substances
CPT/HCPCS: 36415; 70450; 71045; 80048; 80307; 81001; 81025; 82550; 84443; 84484; 84703; 85025; 93005; 93010; 99285; G0480; 80320; Q0162; Q0177